=== PATIENT | male | born 1955 | race Caucasian/White ===

== ENCOUNTER → 2017-08-29 | Outpatient (CLI) | payer OTHER ==
[~2017-08-29] MED LIST: EYE HEALTH ADU1 EACH PO; FISH OIL 1,0001 EAC7 PO; HYZAAR 100-21 TABLET PO; LABETALOL HCL100 MG PO; OSTEO BI-FLEX1 EAC1 PO
== END | disposition home or self-care (01) ==
LOC: CDC 08:30
DX: Z01.810 Encounter for preprocedural cardiovascular examination (principal); K40.90 Unilateral inguinal hernia, without obstruction or gangrene, not specified as recurrent; I45.10 Unspecified right bundle-branch block; R00.1 Bradycardia, unspecified
CPT/HCPCS: 93000

== ENCOUNTER 2017-09-06 05:41 | Day surgery (SDC) | payer OTHER ==
[~2017-09-06] VITALS: Ht 180.3 cm; Wt 90.7 kg
[2017-09-06 06:31] VITALS: BP 154/76
[2017-09-06] MEDS ORDERED: COLACE100 MG PO (14:53)
[2017-09-06] MEDS ORDERED: DILAUDID4 MG PO (14:53)
[2017-09-06] MEDS ORDERED: ONDANSETRON HCL8 MG PO (14:53)
[2017-09-06 15:58] VITALS: BP 131/76
[2017-09-06 19:10] VITALS: BP 123/71
[2017-09-06 23:33] VITALS: BP 109/59
[2017-09-07 04:03] VITALS: BP 109/58
[2017-09-07 06:00] LABS: BASOPHIL (%) 0.3 % (0-1); EOSINOPHIL (%) 0.1 % (0-5); HEMATOCRIT 31.3 % (38.0-50.0); IMMATURE GRANULOCYTE (%) 0.3 % (0.0-0.7); LYMPHOCYTE (%) 24.6 % (15-42); LYMPHOCYTE COUNT 1.9 K/uL (1.0-2.8); MCH 30.5 PG (29.0-34.0); MCHC 33.5 G/DL (30.0-36.0); MONOCYTE (%) 11.9 % (3-12); MONOCYTE COUNT 0.9 K/uL (0-0.8); NEUTROPHIL (%) 62.8 % (45-76); NEUTROPHIL COUNT 4.9 K/uL (1.8-6.4); PLATELET COUNT 203 K/uL (156-360); RBC DIS.WIDTH-SD 42.9 % (39-53); WHITE BLOOD COUNT 7.8 K/uL (4.1-10.2)
[2017-09-07 06:01] LABS: HEMOGLOBIN 10.5 G/DL (12.5-16.6); RED BLOOD COUNT 3.44 M/uL (4.00-5.50)
[2017-09-07 06:25] LABS: CHLORIDE 100 MEQ/L (99-109); GFR ESTIMATE (CALCULATED) > 59 mL/min/ (58.99-99999); GLUCOSE 106 mg/dL (70-99); POTASSIUM 3.5 MEQ/L (3.7-5.4); SODIUM 137 MEQ/L (136-147); UREA NITROGEN (BUN) 17 mg/dL (9-23)
[2017-09-07 07:26] VITALS: BP 114/58
== END 2017-09-07 10:08 | disposition home or self-care (01) ==
LOC: SDC 05:41 → 2SOUTH 11:15 → ENRESERV 11:43 → 3EAST 13:05 → SDC 13:26 → 3EAST 09-07 10:08
PROVIDERS: Surgery
PROC: 0YUA4JZ Supplement Bilateral Inguinal Region with Synthetic Substitute, Percutaneous Endoscopic Approach (ICD-10-PCS; principal; 2017-09-06)
DX: K40.91 Unilateral inguinal hernia, without obstruction or gangrene, recurrent (principal); K40.90 Unilateral inguinal hernia, without obstruction or gangrene, not specified as recurrent; I10 Essential (primary) hypertension; I45.10 Unspecified right bundle-branch block
CPT/HCPCS: 80048; 85025; 88302; C1781; G0378; J0131; J0690; J1100; J1170; J1885; J2250; J2405; J2710; J2795; J3010; J7120; J7643; Q0175; S0020